=== PATIENT | female | born 1975 | race Hispanic/Latino ===

== ENCOUNTER 2017-11-23 16:47 | Emergency (ER) | payer OTHER, SELFPAY | END 2017-11-23 18:16 | disposition home or self-care (01) | LOC: EDH 16:47 | DX: J11.1 Influenza due to unidentified influenza virus with other respiratory manifestations (principal); H10.9 Unspecified conjunctivitis; Z98.890 Other specified postprocedural states | CPT/HCPCS: 87804 ==